=== PATIENT | male | born 1960 | race Caucasian/White ===

== ENCOUNTER 2017-06-07 09:36 | Emergency (ER) | payer SELFPAY ==
[~2017-06-07] VITALS: Ht 185.4 cm; Wt 71.0 kg
[2017-06-07 10:05] VITALS: BP 116/82; PULSE 77; RESP 18; TEMP 97.5; O2SAT 98
[2017-06-07] MEDS ORDERED: NAPR500T2 PO (10:27)
--- NOTE | 2017-06-07 10:33 | PD ---
HPI Chief Complaint: Back/ Neck Pain or Injury Time Seen by Provider: 10:18 Travel History International Travel<30 days: No Contact w/Intl Traveler<30days: No Traveled to known affect area: No History of Present Illness HPI 56-year-old male presents to the emergency room for evaluation of severe, sharp , low back pain for the past week. Patient denies any trauma or injury. States he woke up with the pain and it is gradually worsening. Localized to the bilateral lower lumbar region without radiation. Worse with certain range of motion. He has been taking low-dose Naprosyn without any relief in symptoms. Patient denies any history of back pain. He reports occasional night sweats and weight loss for the past week. He denies any IV drug use, fever, chills, lower extremity paresthesias, saddle anesthesia, loss of bowel or bladder control. PFSH Social History Tobacco Use: Yes Allergies-Medications (Allergen,Severity, Reaction): Coded Allergies: No Known Allergies (Unverified , 06/07/17) Reported Meds & Prescriptions Reported Meds & Active Scripts Active Reported Naproxen 500 Mg Tab 500 Mg PO DAILY PRN Review of Systems Except as stated in HPI: all other systems reviewed are Neg Physical Exam Narrative GENERAL: Well-nourished, well-developed male in no acute distress. Afebrile. Ambulatory. Smells of alcohol. SKIN: Focused skin assessment warm/dry. HEAD: Normocephalic. EYES: No scleral icterus. No injection or drainage. NECK: Supple, trachea midline. No JVD or lymphadenopathy. CARDIOVASCULAR: Regular rate and rhythm without murmurs, gallops, or rubs. RESPIRATORY: Breath sounds equal bilaterally. No accessory muscle use. BACK: No CVA tenderness. No rash. No point tenderness on palpation of the spine. Tenderness to palpation of bilateral SI joints. Data Data Last Documented VS Vital Signs Date Time Temp Pulse Resp B/P (MAP) Pulse Ox O2 Delivery O2 Flow Rate FiO2 06/07/17 10:05 97.5 77 18 116/82 (93) [address] Lumb Spine W/O Contrast (06/07/17 ) Ketorolac Inj (Toradol Inj) (06/07/17 11:15) Orphenadrine Inj (Norflex Inj) (06/07/17 11:15) MDM Medical Decision Making Medical Screen Exam Complete: Yes Emergency Medical Condition: Yes Medical Record Reviewed: Yes Differential Diagnosis Muscle strain, sciatica, degenerative disc disease, spondylolisthesis Narrative Course 56-year-old male presents to the emergency room for evaluation of low back pain for the past week. Patient denies any trauma or injury. Patient reports minimal weight loss and occasional night sweats over the past week but no other history of such. No other red flag symptoms. No focal neurological deficits. Patient appears uncomfortable in bed but moves easily and is ambulatory. Physical exam reveals mild tenderness to palpation of bilateral paraspinous musculature of the lumbar spine. CT reveals multilevel degenerative signs of lumbar spine. Broad-based disc bulge and small central disc protrusion as well as facet arthrosis resulting in bilateral neural foraminal narrowing and mild left lateral recess area and L4-5. Patient was treated with Toradol and Norflex in the emergency room. Discharged with prescriptions for ibuprofen and Robaxin. Told to follow-up with primary care physician for long-term management of chronic pain or return for worsening symptoms. He understands and agrees to plan. Diagnosis Primary Impression: Degenerative disc disease, lumbar Referrals: Primary Care Physician Additional Instructions: Rest and drink plenty of fluids. Omeprazole as directed, until gone. Take Robaxin as directed, as needed for pain. Take ibuprofen with food as directed, as needed for pain. Do not take this with Naprosyn. Apply ice to the affected area for 20 minutes at a time, as needed for pain and swelling. Follow-up with a primary care physician. Return to the emergency room for worsening symptoms. Med/Other Pt SpecificInfo: Prescription(s) given Scripts Methocarbamol (Robaxin) 750 Mg Tab 750 MG PO Q8HR for Muscle Spasm, #15 TAB 0 Refills Prov: Jonathan Toussaint MD 06/07/17 Omeprazole (Omeprazole) 20 Mg Tab 20 MG PO DAILY, #15 TAB 0 Refills Prov: Jonathan Toussaint MD 06/07/17 Ibuprofen (Ibuprofen) 600 Mg Tab 600 MG PO Q8HR Y for PAIN, #21 TAB 0 Refills Prov: Jonathan Toussaint MD 06/07/17 Disposition: 01 DISCHARGE HOME Condition: Stable Adelina Dominguez Jun 07, 2017 10:33
--- NOTE | 2017-06-07 11:03 | RADRPT ---
EXAM DATE/TIME: 06/07/2017 10:35 [facility] COMPARISON: No previous studies available for comparison. INDICATIONS : Back pain for 1 week with no known injury. RADIATION DOSE: 16.68 CTDIvol (mGy) MEDICAL HISTORY : None SURGICAL HISTORY : None. ENCOUNTER: Initial ACUITY: 1 week PAIN SCALE: 5/10 LOCATION: Bilateral Paraspinal TECHNIQUE: Volumetric scanning of the lumbar spine was performed. Multiplanar reconstructions in the sagittal, coronal and oblique axial planes were performed. Using automated exposure control and adjustment of the mA and/or kV according to patient size, radiation dose was kept as low as reasonably achievable t o obtain optimal diagnostic quality images. DICOM format image data is available electronically for review and comparison. FINDINGS: VERTEBRAE: No evidence of fracture. ALIGNMENT: Alignment within normal limits. T12-L1: Anterior endplate osteophytes. No evidence of focal disc protrusion. Thecal sac is normal diameter. N eural foraminal diameters are within normal limits. L1-L2: Minimal broad-based disc bulge. No evidence of focal disc protrusion. Central canal normal diameter. Neural foraminal diameters within normal limits. L2-L3: Minimal broad-based disc bulge. Central canal diameter within normal limits. Neural foraminal diamete rs within normal limits. L3-L4: Broad-based disc bulge and shallow central disc protrusion. Mild bilateral facet hypertrophy. Central canal diameter within normal limits. Neural foraminal diameters within normal limits. L4-L5: Broad-based disc bulge and superimposed central disc protrusion. Mild bilateral facet hypertrophy. Mi ld bilateral neural foraminal narrowing. Mild left lateral recess narrowing. Central canal diameter w ithin normal limits. L5-S1: Minimal broad-based disc bulge and mild bilateral facet hypertrophy. Central canal diameter within no rmal limits. Neural foraminal diameters within normal limits. CONCLUSION: Multilevel degenerative signs of lumbar spine. Broad-based disc bulge and small central disc protrusi on as well as facet arthrosis resulting in bilateral neural foraminal narrowing and mild left lateral recess area and L4-5. Shahbaz Noguera MD on June 07, 2017 at 10:53 Board Certified Radiologist. This report was verified electronically.
[2017-06-07] MEDS ORDERED: KETOROLAC TROMETHAMINE 60 MG/2 ML (IM) VIAL IM ONE (11:15)
[2017-06-07] MEDS ORDERED: OMEP20TA93 PO (11:15)
[2017-06-07] MEDS ORDERED: IBUP-232 PO (11:15)
[2017-06-07] MEDS ORDERED: ROBA750T PO (11:15)
[2017-06-07] MEDS ORDERED: ORPHENADRINE INJ 60 MG/2 ML AMP IM ONE (11:15)
== END 2017-06-07 11:40 | disposition home or self-care (01) ==
LOC: NEPK 09:36
DX: M51.36 Other intervertebral disc degeneration, lumbar region (principal)
CPT/HCPCS: 72131; 96372; 99283; J1885; J2360